=== PATIENT | female | born 1985 | race Caucasian/White ===

== ENCOUNTER 2017-03-12 07:13 | Emergency (ER) | payer MEDICAID ==
[2017-03-12 08:30] VITALS: BP 132/68
== END 2017-03-12 08:30 | disposition home or self-care (01) ==
LOC: ED 07:13
DX: S16.1XXA Strain of muscle, fascia and tendon at neck level, initial encounter (principal); V43.92XA Unspecified car occupant injured in collision with other type car in traffic accident, initial encounter; Y93.89 Activity, other specified; Y99.8 Other external cause status; Y92.89 Other specified places as the place of occurrence of the external cause